=== PATIENT | male | born 1975 | race Caucasian/White ===

== ENCOUNTER 2019-04-21 12:53 | Emergency (ER) | payer MEDICAID ==
[~2019-04-21] VITALS: Ht 162.6 cm; Wt 61.2 kg
--- NOTE | 2019-04-21 12:55 | NUR ---
PATIENT TO ER #1 AND PLACED ON RESPIRATORY COORDINATOR, SAO2 AND ABP; GLUCOMETER CHECK 153
[2019-04-21 12:58] VITALS: BP_SYST 137
--- NOTE | 2019-04-21 13:00 | NUR ---
PT HAD SYNCOPE EPISODE DURING PT'S FAMILY'S BLOOD DRAWN. PT ASSISTED TO [facility] BED 1. PT PLACED ON ERCO MACHINE OPERATOR.DR. POP,A INFORMED. NO ACUTE DISTRESS NOTED.
[2019-04-21] MEDS ORDERED: NACL 0.9% 1,000 ML IV ONE ×2 (13:15→14:15)
[2019-04-21 13:44] LABS: BASOPHILS # (AUTO) 0.1 K/uL (0.0-0.2); BASOPHILS % (AUTO) 1.1 % (0.0-2.0); EOSINOPHILS # (AUTO) 0.1 K/uL (0.0-0.4); EOSINOPHILS % (AUTO) 1.5 % (0.0-4.0); HEMATOCRIT 24.7 % (36-54); HEMOGLOBIN 8.3 g/dL (14.0-18.0); LYMPHOCYTES # (AUTO) 1.4 K/uL (1.0-5.5); MEAN CORPUSCULAR HEMOGLOBIN 28 pg (27-31); MEAN CORPUSCULAR HGB CONC 34 % (32-36); MEAN CORPUSCULAR VOLUME 83 fL (79.0-98.0); MONOCYTES # (AUTO) 0.5 K/uL (0.0-1.0); MONOCYTES % (AUTO) 5.5 % (1.7-9.3); NEUTROPHILS # (AUTO) 6.4 K/uL (1.8-7.7); NEUTROPHILS % (AUTO) 74.9 % (40.0-70.0); PLATELET COUNT (AUTO) 438 K/uL (130-430); WHITE BLOOD COUNT (AUTO) 8.5 K/uL (4.8-10.8)
[2019-04-21 13:54] LABS: CALCIUM 8.3 mg/dL (8.4-11.0); CREATININE 2.61 mg/dL (0.55-1.30); POTASSIUM 4.9 mmol/L (3.5-5.1)
[2019-04-21 13:59] LABS: ALBUMIN 2.5 g/dL (3.4-4.8); TOTAL BILIRUBIN 0.2 mg/dL (0.0-1.0)
--- NOTE | 2019-04-21 14:00 | NUR ---
PT REFUSING FURTHER EVALUTION, BLOOD DRAWN. CONTINUING TO MONITORING PT.
--- NOTE | 2019-04-21 16:20 | NUR ---
Patient does not wish to proceed with medical care recommended by Jennifer ALVARADO. Patient given information related to possible complications, up to and including , which could occur as a result of leaving hospital at this time. Patient verbalizes understanding of risks involved leaving against medical advice. Patient has signed AMA form.
[2019-04-21 16:38] VITALS: BP_SYST 136
--- NOTE | 2019-04-21 16:38 | NUR ---
Patient given written and verbal discharge instructions and verbalizes understanding. ER MD discussed with patient the results and treatment provided. Patient in stable condition. ID arm band removed. Rx of ZOFRAN given. Patient educated on pain management and to follow up with PMD. Pain Scale 0. Opportunity for questions provided and answered. Medication side effect fact sheet provided.
== END 2019-04-21 16:38 | disposition home or self-care (01) ==
LOC: SED 12:53
DX: D64.9 Anemia, unspecified (principal); N28.9 Disorder of kidney and ureter, unspecified; R55 Syncope and collapse; E11.29 Type 2 diabetes mellitus with other diabetic kidney complication; I10 Essential (primary) hypertension; F17.200 Nicotine dependence, unspecified, uncomplicated
CPT/HCPCS: 36415; 80053; 83880; 84484; 85025; 99283

== ENCOUNTER 2019-04-24 13:55 | Emergency (ER) | payer MEDICAID ==
[~2019-04-24] VITALS: Ht 165.1 cm; Wt 54.4 kg
[2019-04-24 13:55] VITALS: BP_SYST 154
--- NOTE | 2019-04-24 13:55 | NUR ---
BROUGHT BACK TO BED #5, TRIAGED. REPORT GIVEN TO ZARINA
--- NOTE | 2019-04-24 14:00 | NUR ---
Patient arrived in the ED c/o weakness, stated he was here 2 days ago and was told he had anemia but left AMA. Denied any chest pain or shortness of breath. Denied any fevers, nausea, vomiting, or chills. Patient is alert and oriented x4, respirations even and unlabored, speaking in full sentences, ambulating with a steady gait. VSS, pain level 0/10. Informed of wait time. Instructed to notify ED staff for any changes in condition or worsening of symptoms. Patient verbalized understanding.
[2019-04-24] MEDS ORDERED: NACL 0.9% 1,000 ML IV ONE (14:30)
--- NOTE | 2019-04-24 14:35 | NUR ---
# 18 gauge angiocath placed to RAC. Use of asceptic technique. Opsite placed over site. Blood return noted. Blood for lab drawn from site. Flushed with 10 cc of normal saline. No evidence of infiltration noted. Patient tolerated well.
--- NOTE | 2019-04-24 14:40 | NUR ---
ER Dr. Deleon at bedside examining patient.
[2019-04-24 14:55] LABS: BASOPHILS # (AUTO) 0.1 K/uL (0.0-0.2); BASOPHILS % (AUTO) 0.9 % (0.0-2.0); EOSINOPHILS # (AUTO) 0.1 K/uL (0.0-0.4); EOSINOPHILS % (AUTO) 1.1 % (0.0-4.0); HEMATOCRIT 29.1 % (36-54); HEMOGLOBIN 9.9 g/dL (14.0-18.0); LYMPHOCYTES # (AUTO) 1.5 K/uL (1.0-5.5); LYMPHOCYTES % (AUTO) 13.7 % (20.5-51.5); MEAN CORPUSCULAR HEMOGLOBIN 28 pg (27-31); MEAN CORPUSCULAR HGB CONC 34 % (32-36); MEAN CORPUSCULAR VOLUME 83 fL (79.0-98.0); MONOCYTES # (AUTO) 0.6 K/uL (0.0-1.0); NEUTROPHILS # (AUTO) 8.4 K/uL (1.8-7.7); NEUTROPHILS % (AUTO) 78.3 % (40.0-70.0); PLATELET COUNT (AUTO) 517 K/uL (130-430); RED BLOOD CELL COUNT(AUTO) 3.51 MIL/uL (4.2-6.2); RED CELL DISTRIBUTION WIDTH 16.2 % (9.0-15.0); WHITE BLOOD COUNT (AUTO) 10.7 K/uL (4.8-10.8)
[2019-04-24 15:18] LABS: CALCIUM 8.7 mg/dL (8.4-11.0); CREATININE 2.43 mg/dL (0.55-1.30); POTASSIUM 4.4 mmol/L (3.5-5.1)
[2019-04-24 15:24] LABS: ALBUMIN 2.8 g/dL (3.4-4.8); TOTAL BILIRUBIN 0.2 mg/dL (0.0-1.0)
--- NOTE | 2019-04-24 16:04 | NUR ---
Patient is resting comfortably in bed. Respirations even and unlabored.
[2019-04-24 16:32] LABS: PROTHROMBIN TIME 10.2 SECS (9.5-12.5)
--- NOTE | 2019-04-24 16:45 | NUR ---
ER Dr. Deleon at bedside re-examining patient and giving discharge instructions.
[2019-04-24 17:15] VITALS: BP_SYST 118
== END 2019-04-24 17:16 | disposition home or self-care (01) ==
LOC: SED 13:55
DX: D64.9 Anemia, unspecified (principal); N28.9 Disorder of kidney and ureter, unspecified; I10 Essential (primary) hypertension; E11.9 Type 2 diabetes mellitus without complications; F32.9 Major depressive disorder, single episode, unspecified
CPT/HCPCS: 36415; 80053; 85025; 85610; 85730; 96360; 99283; J7030

== ENCOUNTER 2020-11-19 02:59 | Emergency (ER) | payer MEDICAID, SELFPAY ==
[~2020-11-19] VITALS: Ht 165.1 cm; Wt 47.6 kg
[~2020-11-19 02:59] MED LIST: ATOR10TA68 PO; CIPR250T4 PO; COR6.25 PO; HYDR-4039 PO; METR500T PO; ONDA4TAB5 PO; PRO40 PO
[2020-11-19 03:00] VITALS: BP_SYST 242
--- NOTE | 2020-11-19 03:00 | NUR ---
Patient to ER bed 6 to gown for evaluation. Side rails up. Report given to MATT GTZ.
--- NOTE | 2020-11-19 03:04 | NUR ---
ER at bedside examining patient.
--- NOTE | 2020-11-19 03:09 | NUR ---
Pt LAKISHA from home to ED with history of longstanding diabetes recently began on dialysis with a right subclavian port in place became suddenly short of breath at approximately twelve midnight this evening. Patient noted dyspnea on exertion normal denied any antecedent fevers chills URI or cough. Patient summoned paramedics who found patient severely hypertensive with blood pressure readings in the 250/150 range. Patient received sublingual nitro x4 with slight reduction in blood pressure and improvement of symptoms. Patient arrived with overall improvement although did report mild dyspnea. No reported lower extremity pain or swelling. Reports transient chest pain at onset of symptoms lasting for several minutes
--- NOTE | 2020-11-19 03:10 | NUR ---
# 20 gauge angiocath placed to LEFT HAND. Use of asceptic technique. Opsite placed over site. Blood return noted. Blood for lab drawn from site. Flushed with 10 cc of normal saline. No evidence of infiltration noted. Patient tolerated well.
--- NOTE | 2020-11-19 03:13 | NUR ---
Urine collected and sent to lab.
[2020-11-19] MEDS ORDERED: NITROGLYCERIN 1 INCH (GM) OINT. TP ONE (03:15)
[2020-11-19] MEDS ORDERED: hydrALAZINE HCL 20 MG/ML VIAL IVP ONE (03:15)
--- NOTE | 2020-11-19 03:18 | NUR ---
PORTABLE XRAY AT BEDSIDE COMPLETED.
[2020-11-19 03:40] LABS: BASOPHILS # (AUTO) 0.1 K/uL (0.0-0.2); BASOPHILS % (AUTO) 0.9 % (0.0-2.0); EOSINOPHILS # (AUTO) 0.5 K/uL (0.0-0.4); HEMATOCRIT 43.4 % (36-54); HEMOGLOBIN 13.8 g/dL (14.0-18.0); LYMPHOCYTES # (AUTO) 1.5 K/uL (1.0-5.5); LYMPHOCYTES % (AUTO) 13.4 % (20.5-51.5); MEAN CORPUSCULAR HEMOGLOBIN 29 pg (27-31); MEAN CORPUSCULAR HGB CONC 32 % (32-36); MEAN CORPUSCULAR VOLUME 91 fL (79.0-98.0); MONOCYTES # (AUTO) 0.8 K/uL (0.0-1.0); MONOCYTES % (AUTO) 7.7 % (1.7-9.3); NEUTROPHILS # (AUTO) 8.1 K/uL (1.8-7.7); PLATELET COUNT (AUTO) 464 K/uL (130-430); RED BLOOD CELL COUNT(AUTO) 4.76 MIL/uL (4.2-6.2); RED CELL DISTRIBUTION WIDTH 17.2 % (9.0-15.0); WHITE BLOOD COUNT (AUTO) 11.1 K/uL (4.8-10.8)
--- NOTE | 2020-11-19 04:05 | NUR ---
Lab bedside for follow up blood draw, well tolerated
[2020-11-19 04:31] LABS: CALCIUM 8.9 mg/dL (8.4-11.0); POTASSIUM 4.5 mmol/L (3.5-5.1)
[2020-11-19 04:36] LABS: ALBUMIN 3.1 g/dL (3.4-4.8); TOTAL BILIRUBIN 0.3 mg/dL (0.0-1.0)
[2020-11-19 04:45] LABS: CREATININE 8.38 mg/dL (0.55-1.30)
[2020-11-19] MEDS ORDERED: CARVEDILOL 6.25 MG TABLET (COREG) PO ONE (05:00)
[2020-11-19] MEDS ORDERED: INSULIN REGULAR, HUMAN 10 UNITS/0.1 ML INJ IVP ONE (05:00)
--- NOTE | 2020-11-19 05:08 | NUR ---
Pt verbalized " feeling a little better "Dr. Sierra is aware
[2020-11-19] MEDS ORDERED: hydrALAZINE HCL 20 MG/ML VIAL ONE (05:16)
[2020-11-19] MEDS ORDERED: ISOS30TA85 PO (06:22)
--- NOTE | 2020-11-19 06:23 | NUR ---
Dr. [facility] for pt update
[2020-11-19] MEDS ORDERED: PIOG15TA8 PO (06:28)
--- NOTE | 2020-11-19 06:45 | NUR ---
Patient given written and verbal discharge instructions and verbalizes understanding. ER MD discussed with patient the results and treatment provided. Patient in stable condition. ID arm band removed. IV catheter removed intact and dressing applied, no active bleeding. Rx of Imdur and Actos given. Patient educated on pain management and to follow up with PMD. Pain Scale 0/10 Opportunity for questions provided and answered. Medication side effect fact sheet provided.
[2020-11-19 06:46] VITALS: BP_SYST 148
== END 2020-11-19 06:45 | disposition home or self-care (01) ==
LOC: SED 02:59
DX: I10 Essential (primary) hypertension (principal); E11.9 Type 2 diabetes mellitus without complications; Z79.899 Other long term (current) drug therapy
CPT/HCPCS: 36415; 71045; 80053; 83880; 84484; 85025; 93005; 96374; 96375; 99291; J0360; J1815